=== PATIENT | female | born 1985 | race Caucasian/White ===

== ENCOUNTER 2018-04-24 20:03 | Emergency (ER) | payer OTHER ==
[~2018-04-24] VITALS: Ht 152.4 cm; Wt 63.5 kg
[~2018-04-24 20:03] MED LIST: ALPRAZOLAM 0.0.25 MG PO; ALPRAZOLAM PO; ALPRAZOLAM2 M1 PO; APAP500 PO; BACTRIM DS TAB1 EACH PO; CARVEDILOL3.125 MG PO; COMPAZINE5 MG PO; DERMOPLAST SPRA56 ML; DILANTIN100 MG PO; FIORICET 50-321 EACH PO; FLAGYL500 MG PO; FLORINEF ACETA0.1 MG PO; HYDROCODON-ACE1 EAC8 PO; IBUPROFEN 200200 M1 PO; IBUPROFEN 400400 M1 PO; IBUPROFEN 600600 M1 PO; IBUPROFEN 800800 M1 PO; INDOMETHACIN 2525 MG PO; LANOLIN56 GM; LORTAB 5 MG/5001 TAB PO; METROGEL-VAGINA70 GM VG; MUCINEX600 MG PO; NAPROSYN500 MG PO; NORCO 5-325 TA1 EACH PO; NORFLEX100 MG PO; PREDNISONE 20 M20 MG PO; PRENATAL MULTI1 EAC2 PO; PRENATAL PO; RANITIDINE HCL300 M1 PO; SUDAFED 12 HOU120 MG PO; TOPAMAX50 MG PO; TRAMADOL; TUCKS MEDICATE1 EAC1; ULTRAM 50MG TAB50 MG PO; VICODIN; VICODIN 5-5001 EACH PO; ZOFRAN 4 MG ORAL4 M1 DIS
[2018-04-24 20:07] VITALS: BP 117/64
[2018-04-24] MEDS ORDERED: PENICILLIN V P500 MG PO (20:30)
[2018-04-24] MEDS ORDERED: NORCO 5-325 TA1 EACH PO (20:30)
== END 2018-04-24 20:44 | disposition home or self-care (01) ==
LOC: ER 20:03
DX: S09.8XXA Other specified injuries of head, initial encounter (principal); F17.210 Nicotine dependence, cigarettes, uncomplicated; Z88.6 Allergy status to analgesic agent; X58.XXXA Exposure to other specified factors, initial encounter; Y93.89 Activity, other specified; Y92.89 Other specified places as the place of occurrence of the external cause; Y99.8 Other external cause status

== ENCOUNTER 2018-07-10 15:23 | Emergency (ER) | payer OTHER ==
[~2018-07-10] VITALS: Ht 152.4 cm; Wt 63.5 kg
[~2018-07-10 15:23] MED LIST changes: +PENICILLIN V P500 MG PO
[2018-07-10] MEDS ORDERED: IBUPROFEN 800800 M1 PO (16:56)
[2018-07-10] MEDS ORDERED: PENICILLIN V P500 MG PO (16:56)
[2018-07-10] MEDS ORDERED: HYDROCODONE-AP1 EAC6 PO (16:56)
[2018-07-10 17:52] VITALS: BP 124/82
== END 2018-07-10 17:52 | disposition home or self-care (01) ==
LOC: ER 15:23
DX: K02.9 Dental caries, unspecified (principal); K05.10 Chronic gingivitis, plaque induced; F17.210 Nicotine dependence, cigarettes, uncomplicated; Z88.5 Allergy status to narcotic agent; Z88.8 Allergy status to other drugs, medicaments and biological substances

== ENCOUNTER 2018-08-05 14:54 | Emergency (ER) | payer OTHER ==
[~2018-08-05] VITALS: Ht 157.5 cm; Wt 65.8 kg
[~2018-08-05 14:54] MED LIST changes: +HYDROCODONE-AP1 EAC6 PO
[2018-08-05] MEDS ORDERED: TYLENOL EXTRA500 MG PO (15:30)
[2018-08-05] MEDS ORDERED: ALEVE220 M1 PO (15:31)
[2018-08-05] MEDS ORDERED: MOBIC7.5 MG PO (16:09)
[2018-08-05] MEDS ORDERED: NORCO 10-325 T1 EACH PO (16:09)
[2018-08-05] MEDS ORDERED: PENICILLIN V P500 MG PO (16:09)
[2018-08-05 16:49] VITALS: BP 114/79
== END 2018-08-05 16:50 | disposition home or self-care (01) ==
LOC: ER 14:54
DX: K05.219 Aggressive periodontitis, localized, unspecified severity (principal); F17.210 Nicotine dependence, cigarettes, uncomplicated; Z88.8 Allergy status to other drugs, medicaments and biological substances